=== PATIENT | male | born 1970 | race Hispanic/Latino ===

== ENCOUNTER → 2017-01-13 | Outpatient (CLI) | payer OTHER ==
--- NOTE | 2017-01-13 13:36 | REP ---
MRI RIGHT KNEE: TECHNIQUE: Axial proton density fat saturation, sagittal proton density T2 STIR, water excitation, coronal proton density, proton density fat saturation. There is an extensive complex tear of the posterior horn of the medial meniscus. The lateral meniscus appears intact. The cruciate and collateral ligaments are intact. The extensor mechanism is intact. There is mild to moderate global chondromalacia in the medial joint compartment. No osteochrondral defect is seen. There is no bone marrow edema or occult fracture. There is a small joint effusion. There is a small amount of fluid in the medial popliteal fossa. IMPRESSION: Complex tear posterior horn medial meniscus. 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 Small joint effusion, with a small amount of fluid also seen in the medial popliteal fossa. Signed by Tristan Soto MD 01/13/2017 08:18 P
== END ==
LOC: M RAD 06:41
PROVIDERS: ATTEND Surgery
DX: S83.241A Other tear of medial meniscus, current injury, right knee, initial encounter (principal); X58.XXXA Exposure to other specified factors, initial encounter; Y92.89 Other specified places as the place of occurrence of the external cause; Y93.89 Activity, other specified; Y99.8 Other external cause status; M25.461 Effusion, right knee

== ENCOUNTER → 2017-02-28 | Outpatient (CLI) | payer OTHER ==
--- NOTE | 2017-02-28 10:58 | REP ---
Lumbar spine five views: There are no comparisons. Vertebral body heights, interspacing alignment are normal. There are small osteophytes at the anterior margins of the L1 - L4 vertebral disc spaces compatible with mild multilevel degenerative disc disease. There is no spondylolysis or spondylolisthesis. The pedicles, facets and sacroiliac articulations are unremarkable. Impression: Mild multilevel degenerative disc disease. Otherwise, negative lumbar spine. Signed by Tristan Hood MD 02/28/2017 10:49 A
== END ==
LOC: M RAD 09:08
PROVIDERS: ATTEND Surgery
DX: M51.36 Other intervertebral disc degeneration, lumbar region (principal)

== ENCOUNTER → 2017-06-30 | Outpatient (CLI) | payer OTHER ==
--- NOTE | 2017-06-30 13:40 | REP ---
MR LUMBAR SPINE WITHOUT CONTRAST: HISTORY: Back pain. Decreased signal intensity on T2-weighted images is present in the L1-2 through L4-5 intervertebral discs. The discs are decreased in height. These findings are consistent with disc degeneration. A disc bulge and small right paracentral disc extrusion are present at the L1-2 level. There is minimal compression of the thecal sac. The L1 nerves exit the neural foramina without compression. A diffuse disc bulge and small central disc protrusion are present at the L2-3 level. There is minimal compression of the thecal sac. The L2 nerves exit the neural foramina without compression. A diffuse disc bulge and mild size central disc extrusion are present at the L3-4 level. There is inferior migration of disc material. There is mild compression of the thecal sac and L4 nerves greater on the left than on the right as they exit the thecal sac. The L3 nerves exit the neural foramina without compression. A diffuse disc bulge is present at the L4-5 level. There is hypertrophy of the ligamenta flava and posterior articulating facets. These findings produce mild central canal stenosis. The L4 nerves exit the neural foramina without compression. There is no disc bulge or herniation at the L5-S1 level. The L5 nerves exit the neural foraminal without compression. The conus medullaris is normal in appearance terminating at the level of the T12-L1 intervertebral disc. Increased signal intensity on T2 weighted images is present in the endplates of the L3 and L4 vertebral bodies. This represents degenerative change. IMPRESSION: 1. Diffuse disc bulge and small right paracentral disc extrusion at the L1-2 level with minimal thecal sac compression. 2. Diffuse disc bulge and small disc protrusion at the L2-3 level with minimal thecal sac compression. 3. Diffuse disc bulge and mild-size central disc extrusion at the L3-4 level with mild compression of the thecal sac and L4 nerves greater on the left than on the right as they exit the thecal sac. 4. Mild central canal stenosis at the L4-5 level secondary to disc bulge, ligamentous and facet hypertrophy. Signed by Valdemar Abreu MD 06/30/2017 01:41 P
== END ==
LOC: M RAD 10:19
PROVIDERS: ATTEND Surgery
DX: M54.5 Low back pain (principal)